=== PATIENT | female | born 1990 | race Caucasian/White ===

== ENCOUNTER → 2018-07-05 09:28 | Emergency (ER) | payer BC ==
[~2018-07-05 09:28] MED LIST: Ketorolac INJ* 30 MG/ML 1 ML VIAL IV PUSH ONE; Levofloxacin 750 MG IVPREMIX(* 750 MG/150 ML BAG IVPB ONE
--- NOTE | 2018-07-05 09:57 | ED ---
Back Pain - HPI Summary HPI Summary: Pt is a 28 y/o F presenting to the ED with a chief complaint of sharp bilateral mid-lower back pain onset two days ago, worsened by movement and alleviated by nothing. She reports nausea and vomiting with solid food, but she can keep liquids down. She denies diarrhea or urinary sx. - History of Current Complaint Chief Complaint: EDFlankPain Stated Complaint: FLANK AND BACK PAIN PER PT Time Seen by Provider: 07/05/18 09:40 Hx Obtained From: Patient Onset/Duration: Sudden Onset, Lasting Days, Still Present Onset/Duration: Started Days Ago, Still Present Timing: Constant, Lasting Days Back Pain Location: Is Discrete @ - lower back Severity Initially: Moderate Severity Currently: Moderate Pain Intensity: 6 Pain Scale Used: 0-10 Numeric Character: Sharp, Aching Aggravating Symptom(s): Movement Alleviating Symptom(s): Nothing Associated Signs And Symptoms: Negative: Bladder Incontinence - Allergies/Home Medications Allergies/Adverse Reactions: Allergies Allergy/AdvReac Type Severity Reaction Status Date / Time latex Allergy Rash Verified 07/05/18 09:35 Penicillins Allergy Hives Verified 07/05/18 09:35 PMH/Surg Hx/FS Hx/Imm Hx Previously Healthy: Yes Endocrine/Hematology History: Denies: Hx Diabetes Cardiovascular History: Denies: Hx Hypertension Infectious Disease History: No Infectious Disease History: Denies: Traveled Outside the [place] in Last 30 Days - Family History Known Family History: Negative: Cardiac Disease - Social History Alcohol Use: Rare Hx Substance Use: No Hx Tobacco Use: Yes Smoking Status (MU): Current Every Day Smoker Amount Used/How Often: 1/2 ppd Review of Systems Positive: Vomiting, Nausea. Negative: Diarrhea Positive: no symptoms reported Positive: Myalgia All Other Systems Reviewed And Are Negative: Yes Physical Exam - Summary Physical Exam Summary: Appearance: The patient is well-nourished in no acute distress and in no acute pain. Skin: The skin is warm and dry and skin color reflects adequate perfusion. HEENT: The head is normocephalic and atraumatic. The pupils are equal and reactive. The conjunctivae are clear and without drainage. Nares are patent and without drainage. Mouth reveals moist mucous membranes and the throat is without erythema and exudate. The external ears are intact. The ear canals are patent and without drainage. The tympanic membranes are intact. Neck: The neck is supple with full range of motion and non-tender. There are no carotid bruits. There is no neck vein distension. Respiratory: Chest is non-tender. Lungs are clear to auscultation and breath sounds are symmetrical and equal. Cardiovascular: Heart is tachycardic with a regular rhythm. There is no murmur or rub auscultated. There is no peripheral edema and pulses are symmetrical and equal. Abdomen: The abdomen is soft and non-tender. There are normal bowel sounds heard in all four quadrants and there is no organomegaly palpated. Musculoskeletal: There is tenderness in her paralumbar area. Extremities are non -tender with full range of motion. There is good capillary refill. There is no peripheral edema or calf tenderness elicited. Neurological: Patient is alert and oriented to person, place and time. The patient has symmetrical motor strength in all four extremities. Cranial nerves are grossly intact. Deep tendon reflexes are symmetrical and equal in all four extremities. Psychiatric: The patient has an appropriate affect and does not exhibit any anxiety or depression. Triage Information Reviewed: Yes Vital Signs On Initial Exam: Initial Vitals Temp Pulse Resp BP Pulse Ox 99.5 F 158 18 108/86 97 07/05/18 09:32 07/05/18 09:32 07/05/18 09:32 07/05/18 09:32 07/05/18 09:32 Vital Signs Reviewed: Yes Diagnostics - Vital Signs Vital Signs Temp Pulse Resp BP Pulse Ox 07/05/18 09:32 99.5 F 158 18 108/86 97 - Laboratory Result Diagrams: 07/05/18 10:37 07/05/18 10:37 Lab Statement: Any lab studies that have been ordered have been reviewed, and results considered in the medical decision making process. - CT Abd/pelv CT CT Interpretation Completed By: Radiologist Summary of CT Findings: 1. BILATERAL NEPHROLITHIASIS WITH MULTIPLE RENAL CALYCEAL STONES. THERE IS PERINEPHRIC STRANDING ON THE LEFT SUGGESTIVE OF FORNICEAL RUPTURE WITHOUT APPRECIABLE HYDRONEPHROSIS OR URETERAL STONE. 2. THERE IS A SMALL CALCULUS WITHIN THE BLADDER WHICH MAY REFLECT A RECENTLY PASSED URETERAL STONE. 3. MEDULLARY NEPHROCALCINOSIS. 4. THE UTERUS IS ENLARGED WITH MAY INDICATE A FIBROID UTERUS. ED physician has reviewed this report. - EKG 0950 Cardiac Rate: Tachycardia - 151bpm EKG Rhythm: Sinus Tachycardia ST Segment: Normal Ectopy: None Back Pain Course/Dx - Course Course Of Treatment: Ms. Jarrett presented complaining of 2 days of low back pain that is accompanied by vomiting anytime she tries to eat solid food. She denies any dysuria or abdominal pain. On arrival she is tachycardic although not toxic in appearance. She was afebrile. IV was initiated and she was given IV fluids while her workup was in progress. She was found have a leukocytosis of 12 and a lactic acid of 0.7. Her hCG was negative and her urine was found to be grossly positive. She was given Levaquin when her white count returned elevated accompanying the tachycardia. The tachycardia gradually resolved while she received IV fluids here and a CT scan showed no hydronephrosis but multiple bilateral stones. She had a stone in her bladder likely representing a recently passed stone. Given that she feels better, she has no obstruction and she is no longer tachycardic I think she is safe to go home. She does not have a PCP but is willing to follow up with [facility] and to return if she worsens again. - Diagnoses Provider Diagnoses: Pyelonephritis, Kidney stones Discharge - Sign-Out/Discharge Documenting (check all that apply): Patient Departure Patient Received Moderate/Deep Sedation with Procedure: No - Discharge Plan Condition: Stable Disposition: HOME Prescriptions: Ciprofloxacin TAB* [Cipro Tab*] 500 mg PO BID #20 tab Referrals: [facility] [Outside] Additional Instructions: Please follow up with your primary care provider in 2-3 days. Return to the ED with any new or worsening symptoms. - Billing Disposition and Condition Condition: STABLE Disposition: Home - Attestation Statements Document Initiated by Roseanne: Yes Documenting Scribe: Yamile Chisholm Provider For Whom Roseanne is Documenting (Include Credential): Ochoa Trujillo MD. Scribe Attestation: Yamile Murillo scribed for Ochoa Trujillo MD. on 07/05/18 at 1804. Scribe Documentation Reviewed: Yes Provider Attestation: The documentation as recorded by the Yamile omalley accurately reflects the service I personally performed and the decisions made by me, Ochoa Trujillo MD. Status of Scribe Document: Viewed
[2018-07-05] MEDS: NS 0.9% 1000 ML** 2,000 ML IV ONE (10:02)
[2018-07-05 10:47] LABS: ABS Basophils 0 10^3/ul (0-0.2); ABS Eosinophils 0 10^3/ul (0-0.6); ABS Lymphocytes 1.2 10^3/ul (1.0-4.8); ABS Monocytes 0.9 10^3/ul (0-0.8); ABS Neutrophils 9.8 10^3/ul (1.5-7.7); ABS Nucleated RBC 0 10^3/ul; Eosinophil % 0.1 %; Hematocrit 40 % (33-41); Hemoglobin 12.7 g/dL (12.0-16.0); Lymphocyte % 10.2 %; Mean Corpuscular HGB Conc 32 g/dL (31-36); Mean Corpuscular Hemoglobin 27 pg (27-31); Mean Corpuscular Volume 85 fL (80-97); Mean Platelet Volume 8.8 fL (7.4-10.4); Nucleated Red Blood Cells % 0; Platelet Count 173 10^3/uL (150-450); Red Blood Count 4.69 10^6 /uL (3.70-4.87); Red Cell Distribution Width 16 % (10.5-15)
[2018-07-05 10:55] LABS: Albumin 3.5 g/dL (3.2-5.2); Anion Gap 10 mmol/L (2-11); CO2 Carbon Dioxide 17 mmol/L (22-32); Calcium 7.9 mg/dL (8.6-10.3); Chloride 107 mmol/L (101-111); Potassium 3.3 mmol/L (3.5-5.0); Sodium 134 mmol/L (135-145)
[2018-07-05 11:01] LABS: ALT 11 U/L (7-52); AST 15 U/L (13-39); Albumin/Globulin Ratio 1.2 (1-3); Alkaline Phosphatase 57 U/L (34-104); Blood Urea Nitrogen 13 mg/dL (6-24); EGFR African American 171.2 (>60); EGFR Non-African American 141.5 (>60); Glucose 108 mg/dL (70-100); Total Protein 6.5 g/dL (6.4-8.9)
[2018-07-05 12:52] LABS: HCG Pregnancy < 0.60 mIU/mL
[2018-07-05 12:53] LABS: Urine Appearance Cloudy; Urine Bacteria 1+ (Absent); Urine Bilirubin Negative (Negative); Urine Blood 1+ (Negative); Urine Color Amber; Urine Glucose Negative (Negative); Urine Ketones 2+ (Negative); Urine Nitrite Positive (Negative); Urine Protein 2+(100 mg/dL) (Negative); Urine Red Blood Cell 2+(6-10/hpf) (Absent); Urine Specific Gravity 1.019 (1.010-1.030); Urine Squamous Epithelial Cell Present (Absent); Urine Urobilinogen Positive (Negative); Urine White Blood Cell 3+(>20/hpf) (Absent)
[2018-07-05 15:18] VITALS: BP 105/53
--- NOTE | 2018-07-07 06:31 | PN ---
Progress Note - Progress Note Date of Service: 07/05/18 Note: Urine culture preliminary grew Escherichia coli 100,000 Patient was placed on ciprofloxacin prior to discharge We will await sensitivities at this time
--- NOTE | 2018-07-08 05:48 | PN ---
Progress Note - Progress Note Date of Service: 07/05/18 Note: Urine culture final grew Escherichia coli 100,000 Patient was placed on ciprofloxacin prior to discharge Sensitivities show ciprofloxacin is sensitive to organism Nothing further at this time
== END | disposition home or self-care (01) ==
LOC: ED 09:28
DX: N12 Tubulo-interstitial nephritis, not specified as acute or chronic (principal); N20.0 Calculus of kidney; M54.5 Low back pain; Z88.0 Allergy status to penicillin; F17.210 Nicotine dependence, cigarettes, uncomplicated
CPT/HCPCS: 36415; 74176; 80053; 81003; 81015; 83605; 83690; 84702; 85025; 86140; 87077; 87086; 87186; 93005; 99283; J1885